=== PATIENT | male | born 1945 | race Caucasian/White ===

== ENCOUNTER 2019-05-23 10:44 | Inpatient (IN) ==
--- NOTE | 2019-05-23 12:43 | Diag Imaging Result Doc PS360 ---
EXAM: ABDOMEN FLAT/UPRIGHT 05/23/2019 HISTORY: ascites TECHNIQUE: Flat and upright abdomen COMMENT: There is some stool throughout the colon. There is no evidence of organomegaly or mass. The stomach and small bowel are not distended. IMPRESSION: Constipation. Electronically signed by Danny Rojas 05/23/2019 12:41 PM
--- NOTE | 2019-05-23 12:44 | Diag Imaging Result Doc PS360 ---
EXAM: CHEST-2 VIEWS 05/23/2019 HISTORY: r/o pna TECHNIQUE: PA and lateral chest COMMENT: The right upper lobe is overexposed. There is some questionable platelike atelectasis in the lingula. Otherwise lungs appear to be clear and the heart and pulmonary vascularity are within normal limits. IMPRESSION: Questionable lingular atelectasis. Electronically signed by Danny Rojas 05/23/2019 12:42 PM
[2019-05-23] MEDS ORDERED: DULCOLAX PR ONE (13:09)
--- NOTE | 2019-05-23 13:48 | HISTORY AND PHYSICAL ---
PRIMARY CARE PROVIDER: Dr. Guicho Ross with the IN in [place]. CHIEF COMPLAINT: Shortness of breath, enlarging abdomen, and decreased urine output. HISTORY OF PRESENT ILLNESS: Mr. Guicho Parkinson is a 73-year-old male, with a medical history of diabetes mellitus type 2 on insulin, history of right lower extremity gonorrhea infection from diabetic wound, now a right rulmj-pnb-zohd amputation, and most recently diagnosed with cirrhosis of the liver around 1-1/2 months ago, which has now turned into significant ascites. It is currently causing him to have a decrease in his urine output and he already has CKD. He states last month, which according to our records, on 04/11/2019, he had come in with complaints of nerves, some fatigue, and apparently was incidentally found with the fluid on his abdomen, so the ER made an appointment with Dr. Wilson who he saw today. He has had increasing shortness of breath. Denies any fever. No productive cough. He has had decreased urine output for 3 weeks that has progressively worsened on a daily basis. He has had no bowel movement in 3 days, and complains of constipation for 2 weeks along with lower bilateral quadrant abdominal pain and discomfort. He denies any nausea or vomiting. He does state that someone had told him to drink half a gallon of water per day, which he has done. We have admitted him as a direct admit for Dr. Wilson who plans on doing a paracentesis. PAST MEDICAL HISTORY: 1. Diabetes mellitus type 2, on insulin. 2. History of right lower extremity gonorrhea infection secondary to diabetic foot ulcer, now status post right nxsfe-ezl-kvcr amputation. 3. Cirrhosis of the liver, with questionable history of hepatitis B. 4. GERD. 5. CKD, stage 3. 6. Hypertension. 7. Hyperlipidemia. SURGICAL HISTORY: 1. Right sxhdl-yrt-hcdx amputation. 2. Left great toe amputation. 3. History of stress test several years back. SOCIAL HISTORY: Denies tobacco, alcohol or illicit drug use. He states he has never smoked or drank, however, he is a [employer] and a [employer] and was exposed to Agent [place] in the past. He is . He has 2 adult daughters. 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 He has an artificial limb on the right lwqxa-htq-bjno amputation and uses a cane to assist with his ambulation. FAMILY HISTORY: Mother of a heart attack at 82. Father of TB. ALLERGIES: No known drug allergies. HOME MEDICATIONS: Home medications have not been reconciled yet. REVIEW OF SYSTEMS: Fourteen point review of systems are complete and all were negative except for those mentioned above in the HPI. PHYSICAL EXAMINATION: VITAL SIGNS: Temperature 98.3 degrees, heart rate 83, respiratory rate 18, blood pressure 191/61, O2 saturation 95% on room air. GENERAL: Mr. Guicho Parkinson is a 73-year-old male. He is in no acute distress, is able to answer questions appropriately. HEENT: Atraumatic, normocephalic. Pupils equal, round, and reactive to light. Extraocular movements intact. Mucous membranes are moist. NECK: Trachea midline. CARDIOVASCULAR: S1, S2. Regular rate and rhythm. No rubs, gallops, or murmurs. There is no lower extremity edema. He has +1 dorsalis pedal pulse on the left leg, +2 radial pulses. Negative for JVD or carotid bruits. PULMONARY: Clear to auscultation bilateral breath sounds. No accessory muscle use or work of breathing noted. GI: Large, round, tight, firm, decreased bowel sounds. EXTREMITIES: Moves all extremities equally except the right lower extremity is artificial. NEUROLOGIC: A and O x3. Follows commands. Sensory is intact. SKIN: Warm, dry, intact. LABORATORY DATA: None available yet. IMAGING: Chest x-ray, questionable lingular atelectasis. Abdominal x-ray shows constipation. He had an abdominal ultrasound on April 11, 2019 which showed cirrhosis and ascites. ASSESSMENT AND PLAN: 1. Cirrhosis of the liver, with ascites. Dr. Wilson is seeing this patient and plans for a paracentesis. Currently obtaining all labs. I will evaluate liver function and retest for the antibodies of the hepatitis. Started on some lactulose. Check an ammonia level. He does not have any jaundice that is visible. 2. Diabetes mellitus, type 2. We will do pattern blood glucoses and sliding scale insulin. 3. CKD, stage 3, most likely with acute kidney injury as he has had progressive decreased urine output so we will do urine studies and a renal ultrasound. 4. Hypertension. Currently, he is actually hypotensive but it is most likely from increased intra-abdominal pressure from the ascites, so we will hold any antihypertensives, plus he most likely has acute kidney injury as well. 5. Hyperlipidemia. It looks like he was on a statin at one time, but we will hold that. 6. GERD. Once his home medications are verified we will resume whatever it is he takes for that. 7. Deep venous thrombosis prophylaxis. We will use an SCD for the left lower extremity. 8. Complaints of constipation. No bowel movements in 3 days, worsening constipation for 2 weeks, so, he will get a bisacodyl suppository and we will do lactulose 30 mL twice daily. Dictated by ALDO Gage for Fausto Nava MD cc: ALDO Gage MD MTDD
[2019-05-23 15:16] LABS: INR 1.34; PROTIME 16.8 Seconds (11.0-16.0)
[2019-05-23 15:17] LABS: PTT 34.5 Seconds (22.3-41.8)
[2019-05-23 15:19] LABS: BASO# 0.04 X1000 (0.0-0.2); BASO% 0.7 % (0.0-0.8); EOS# 0.14 X1000 (0.0-0.7); EOS% 2.5 % (0.0-10.0); HEMOGLOBIN 11.4 g/dL (14.0-18.0); LYMPH# 1.97 X1000 (1.2-3.4); LYMPH% 34.9 % (20.5-51.1); MCH 34.2 PG (27-31); MCHC 32.6 g/dL (33-37); MCV 105.1 FL (81-99); MONO# 0.79 X1000 (0.11-0.59); MPV 10.6 FL (7.4-10.4); NEUT# 2.71 X1000 (1.4-6.5); NEUT% 47.9 % (42.2-75.2); PLT 103 X1000 (130-400); RBC 3.33 XMIL (4.7-6.1); RDW 14.2 % (11.5-14.5); WBC 5.65 X1000 (4.8-10.8)
[2019-05-23 15:26] LABS: ALB/GLOB RATIO 0.5; ALBUMIN 2.6 g/dL (3.5-5.0); CALCIUM 8.2 mg/dL (8.8-10.2); CREATININE 1.7 mg/dL (0.7-1.2); POTASSIUM 4.6 mmol/L (3.5-5.1); TOTAL BILIRUBIN 1.11 mg/dL (0.20-1.00); TOTAL PROTEIN 8.3 g/dL (6.3-8.3)
[2019-05-23 15:27] LABS: MAGNESIUM 1.8 mg/dL (1.5-2.7)
--- NOTE | 2019-05-23 16:42 | HISTORY AND PHYSICAL ---
ADDENDUM: The patient was seen and examined by me [id number]. All the laboratory, vital signs, and images were reviewed. This patient's abdomen is distended due to ascites secondary to cirrhosis. Abdomen x-ray showed constipation. He had just a small bowel movement today. Chest x- ray with no infiltrates, with some atelectasis. He is not having any respiratory distress. Vital signs are stable, probably slightly hypotensive or on the low side. Laboratory showed a hemoglobin of 11.4, a platelet count of 103,000. PT 16.8 but INR is 1.3. BUN is normal but creatinine is 1.7. On 04/11/2019, his creatinine was 1.8. As per the patient, he has never been told to have a chronic kidney disease. We asked for a paracentesis, that probably is going to be done tomorrow. We have placed this patient back on his home medications. He has been placed on a renal diet as well. We need to make sure that he receives albumin after the paracentesis if we remove more than 5 L of ascitic fluid. He seems to be stable at this moment. We will wait for the paracentesis. Gastroenterology department has been consulted but actually they sent this patient over to hospitalize this patient due to his ascites. I agree with the rest of the nurse practitioner's assessment and plan. cc: Fausto Nava MD
[2019-05-23] MEDS: LACTULOSE PO SCH ×2 (18:40→20:49)
[2019-05-23 20:30] LABS: URINE SOURCE CATH
[2019-05-23 20:37] LABS: BILIRUBIN URINE NEGATIVE (NEGATIVE); BLOOD URINE LARGE (NEGATIVE); COLOR YELLOW; GLUCOSE URINE NEGATIVE (NEGATIVE); KETONE URINE NEGATIVE (NEGATIVE); LEUKOCYTES URINE NEGATIVE (NEGATIVE); NITRITE URINE NEGATIVE (NEGATIVE); PH URINE 5.5; PROTEIN URINE 30 mg/dL (NEGATIVE); SP GRAVITY URINE 1.022; TURBIDITY URINE HAZY (CLEAR); UROBILINOGEN URINE 2 mg/dL (NORMAL)
[2019-05-23 20:38] LABS: UR EPITHELIAL CELLS <10 /HPF (<10); URINE BACTERIA NEGATIVE /HPF; URINE RBC <10 /HPF (<10); URINE WBC <10 /HPF (<10)
[2019-05-23] MEDS: HUMULIN 70/30 SUBQ SCH (20:50)
[2019-05-23] MEDS: NEURONTIN PO SCH (20:50)
[2019-05-23 20:51] LABS: UR CREAT RANDOM 220.7 mg/dL (14-26)
[2019-05-24] MEDS: PRILOSEC PO SCH (06:10)
--- NOTE | 2019-05-24 06:59 | EKG Report ---
Test Performed on : 05/24/2019 06:37:48 AM Test Reason : chest pain Blood Pressure : / mmHG Vent. Rate : 090 BPM Atrial Rate : 094 BPM P-R Int : 000 ms QRS Dur : 078 ms QT Int : 362 ms P-R-T Axes : 000 070 -39 degrees QTc Int : 442 ms Atrial fibrillation. Low voltage QRS Septal infarct , age undetermined T wave abnormality, consider inferior ischemia Abnormal ECG No previous ECGs available Confirmed by Wesley Luong MD ([id number]) on 05/25/2019 5:31:17 PM
[2019-05-24 07:08] LABS: BASO# 0.02 X1000 (0.0-0.2); BASO% 0.4 % (0.0-0.8); EOS% 1.9 % (0.0-10.0); HEMATOCRIT 33.3 % (42.0-52.0); HEMOGLOBIN 10.8 g/dL (14.0-18.0); LYMPH# 1.69 X1000 (1.2-3.4); LYMPH% 32.3 % (20.5-51.1); MCHC 32.4 g/dL (33-37); MCV 104.7 FL (81-99); MONO# 0.74 X1000 (0.11-0.59); MONO% 14.1 % (1.7-9.3); NEUT# 2.68 X1000 (1.4-6.5); NEUT% 51.3 % (42.2-75.2); PLT 105 X1000 (130-400); RBC 3.18 XMIL (4.7-6.1); RDW 14.1 % (11.5-14.5); WBC 5.23 X1000 (4.8-10.8)
[2019-05-24 07:37] LABS: ALB/GLOB RATIO 0.4; ALBUMIN 2.3 g/dL (3.5-5.0); CALCIUM 8.3 mg/dL (8.8-10.2); CREATININE 1.8 mg/dL (0.7-1.2); MAGNESIUM 1.9 mg/dL (1.5-2.7); POTASSIUM 5.2 mmol/L (3.5-5.1); TOTAL BILIRUBIN 1.2 mg/dL (0.20-1.00)
--- NOTE | 2019-05-24 09:35 | Diag Imaging Result Doc PS360 ---
EXAM: US RENAL 2 ([facility]) COMPLETE INDICATION: jhon; ascites TECHNIQUE: COMPARISON: None. FINDINGS: The kidneys are grossly normal in echotexture with no discrete renal mass or hydronephrosis. The right kidney measures 11.3 cm and the left kidney measures 12 cm in the greatest longitudinal axes. There is a Quick catheter in the urinary bladder and the bladder is nondistended. IMPRESSION: Unremarkable renal ultrasound. Electronically signed by Guicho Ramirez 05/24/2019 9:33 AM
[2019-05-24] MEDS ORDERED: ALBUMIN 25% IV ONE (09:59)
[2019-05-24] MEDS: ASPIRIN EC PO SCH (10:10)
[2019-05-24] MEDS: NEURONTIN PO SCH ×2 (10:11→21:28)
--- NOTE | 2019-05-24 10:17 | Diag Imaging Result Doc PS360 ---
EXAM: US ABD PARACENTESIS W S/I HISTORY: symptomatic ascites, HBV cirrhosis TECHNIQUE: Ultrasound-guided paracentesis COMPARISON: None. FINDINGS: Prior to the procedure I discussed the risk and benefits with the patient. Primary risks include bleeding, infection, bowel injury, and liver injury. Questions were answered. Consent was given. The permit was signed. Ultrasound was used to localize the largest fluid collection in the right abdomen. This area was cleaned and draped in the normal fashion. Lidocaine was used as a local anesthetic. Needle and catheter were advanced into the fluid collection on the first attempt without difficulty. The needle was withdrawn. The catheter was hooked to suction. Approximately 2.3 L of fluid were withdrawn without difficulty. The catheter was then withdrawn. No immediate postprocedural complications. IMPRESSION: Successful ultrasound-guided paracentesis. Electronically signed by Vikram Brito 05/24/2019 10:14 AM
[2019-05-24] MEDS ORDERED: INSULIN PEN NEEDLES ONE (10:49)
[2019-05-24] MEDS: HUMULIN 70/30 SUBQ SCH ×2 (10:51→21:27)
--- NOTE | 2019-05-24 11:07 | GASTROENTEROLOGY CONSULTATION ---
DATE: 05/24/2019 REASON FOR CONSULTATION: Cirrhosis. HISTORY OF PRESENT ILLNESS: Mr. Parkinson is a 73-year-old male with a history of insulin-dependent diabetes type 2, GERD, hepatitis B, cirrhosis, and peripheral neuropathy. The patient came into the hospital yesterday after seeing Dr. Wilson. He was complaining of fatigue, nervousness, shortness of breath, distended abdomen, dyspnea on exertion. The patient denied any nausea, vomiting, but did complain that his urine output has decreased and his urine is dark. He patient mentioned that for the last 6 weeks onwards he is having shakiness in his hands, confusion, fatigue. The patient had been to the ER on 04/11/2019, and at that time his liver functions were elevated and his ultrasound showed that he had some ascites. He is currently reporting that his shakiness has been a little better. He is reporting some constipation which is going on for the past few days onwards. His last bowel movement was 2 days back. He has denied any nausea, vomiting, or any flu-like symptoms. The patient is having a good appetite. He has gained 6-8 pounds in the last 2 to 3 months. The patient did mention that he was diagnosed with hepatitis B, and he is following Dr. Lindo at [facility], and he also sees a skiver uppers or linings at [facility], but has not had any treatment so far. He did have an EGD and a colonoscopy 3 years back. He does have a right foot amputation in 2016 and a left great toe amputed in 2005. The patient does wear a prosthetic leg. The patient currently denies any abdominal pain, but has the feeling of discomfort due to the distention and causes him to have SOB and LORENZO. The patient had an ultrasound-guided paracentesis done today, and approximately 2.3 liters of fluid was taken off, awaiting the results of the fluid analysis. The patient's abdominal x-ray on admission showed constipation. His chest x-ray on admission showed questionable lingular atelectasis. PAST MEDICAL HISTORY: Insulin dependent diabetes type 2, infection in the right lower extremity resulting in a dsoeq-ixj-kdba amputation, cirrhosis of the liver with history of hepatitis B, GERD, chronic kidney disease stage 3, hypertension, hyperlipidemia, peripheral neuropathy, and obesity. PAST SURGICAL HISTORY: Right buftv-yhz-ivch amputation, left great toe amputation. ALLERGIES: No known drug allergies. SOCIAL HISTORY: The patient denies any alcohol, tobacco, or illicit drug use. He is a , and he thinks that he might be exposed to Agent [place] in the past. He is , has 2 kids. 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 FAMILY HISTORY: Mother had heart attack. Father of TB. ALLERGIES: No known drug allergies. HOME MEDICATIONS: Aspirin 81 mg, Neurontin 400 mg twice a day, insulin Novolin 70/30 at 20 units subcutaneously in the a.m., lisinopril/hydrochlorothiazide 20/12.5 mg 10 mg tablet daily, omeprazole 40 mg, and Novolin 70/30 at 30 units subcutaneously at bedtime. REVIEW OF SYSTEMS: As per HPI. Otherwise, 12-point review of systems is negative. PHYSICAL EXAMINATION: Vital Signs: Temperature 98.1 degrees, pulse 93, respirations 18, blood pressure 141/59, oxygen saturation 99% on room air. The patient's weight is 227 pounds. General: He is alert, oriented x3. Answering questions appropriately and in no acute distress. HEENT: Pale conjunctivae. Mild icterus. PERRL. Neck: Supple. Lungs: Clear to auscultation. Cardiovascular: Patient is tachycardic. Abdomen: Firm, distended, nontender. Has a bandage on the right side where the paracentesis was done. Hypoactive bowel sounds heard in all 4 quadrants. Extremities: No clubbing, no cyanosis. No edema in the left lower extremities with the left great toe amputated and the right ksveb-sca-gkte amputation. Neurological: Alert and oriented x3. Nonfocal. Cranial nerves 2 through 12 grossly intact. LABORATORY DATA: WBCs of 5.23, RBCs 3.18, hemoglobin is 10.8, hematocrit is 33.3, platelet count is 105,000. PT 16.8, INR 1.34. Sodium 137, potassium 5.2, chloride 104, carbon dioxide 23, anion gap is 10, BUN is 25, creatinine is 1.8, glucose 180, calcium 8.3, magnesium 1.9, total bilirubin 1.2, AST 55, ALT 33, alkaline phosphatase 78, albumin is 2.3. Urinalysis yesterday showed protein of 30, large amount of blood. IMAGING: Ultrasound-guided paracentesis was done today, which showed he had 2.3 liters of fluid that was withdrawn. Renal ultrasound is unremarkable. Chest x- ray shows questionable lingular atelectasis. Abdominal x-ray shows constipation. IMPRESSION AND PLAN: 1. Decompensated hepatitis B cirrhosis. 2. Ascites. 3. Constipation. 4. Hyperkalemia. 5. Hypoalbuminemia. 6. Acute kidney injury. 7. Insulin dependent diabetes. 8. Thrombocytopenia PLAN: Mr. Parkinson is a 73-year-old male with a history of hepatitis B. GI has been following him for his hepatitis B cirrhosis. Abdominal ultrasound-guided paracentesis was done today, and they removed approximately 2.3 liters of fluids. We have also ordered a hepatitis B DNA quantitative by PCR. We will give patient albumin 75 grams. The patient is currently receiving PPIs daily. For his diabetes, he is on Humulin 70/30 at 30 units at bedtime and 20 units in the a.m. The patient did have 1 bowel movement yesterday. Awaiting the results of his hepatitis profile and his fluid analysis. We will continue to monitor the patient and follow the plan of care per PCP. This plan was discussed with Dr. Wilson. Thank you for your consult. Please call us for any further questions or concerns. Dictated by ALDO Yeager for Yuriy Wilson MD ELLIS
[2019-05-24 11:14] LABS: BODY FLUID SOURCE ASCETIC FLUID; WBC BF 647 /cumm
[2019-05-24 11:15] LABS: MONOS 96 %; POLYS 4 %
[2019-05-24 11:44] LABS: TOTAL PROT BODY FLUID 1.4 g/dL
[2019-05-24 11:50] LABS: ALBUMIN BODY FLUID 0.6 g/dL
[2019-05-24 13:10] LABS: HEPATITIS PROFILE ACUTE SEE COMMENTS
--- NOTE | 2019-05-24 13:53 | PROGRESS NOTE ---
DATE: 05/24/2019 SUBJECTIVE: The patient reports feeling fine after he had a paracentesis in which 2.3 L of ascitic fluid has been removed. Denies any other complaints. OBJECTIVE: Vital Signs: Temperature 97.8 degrees, heart rate 96, respiratory rate 19, blood pressure 123/70, O2 saturation 100% on room air. General examination: This is a chronically ill-looking, 77-year-old, male, lying in bed, no acute distress. Cardiovascular exam: S1, S2 heard. No murmurs, gallops, or rubs. Regular rate and rhythm. Respiratory exam: Clear bilaterally to auscultation. No work of breathing or using accessory muscles. Abdomen: Distended. Physical exam compatible with ascites. No signs of peritoneal irritation. Extremities: No clubbing or cyanosis. Mild edema in both lower extremities. Neurological exam: Patient alert and oriented x3. Moves 4 extremities. LABORATORY DATA: White cell count 5.23, hemoglobin 10.8, hematocrit 33.3, platelets 105,000, with potassium 5.2, creatinine 1.8. Hepatitis panel returned positive for hepatitis B, acute. ASSESSMENT AND PLAN: 1. Cirrhosis of the liver with ascites. Gastroenterology is following this patient, has had paracentesis, which removed basically 2.3 L of ascitic fluid. Hepatitis panel has been recollected and apparently shows an acute hepatitis B. We will see what GI has to say. 2. Diabetes mellitus type 2. Will continue with sliding scale insulin and Accu-Chek before meals and also at bedtime. 3. Chronic kidney disease stage 3. Will continue with monitoring BMP. 4. Hypertension. Blood pressure has been definitely much better in the range of 100 to 120. Will continue with the same management. 5. Hyperlipidemia. Will continue with home medications. 6. Gastroesophageal reflux disease. Aware. Will continue with home medications. 7. Constipation. will continue with lactulose twice daily as needed. 8. Disposition. Will continue to monitor this patient closely. Will monitor also liver function tests as well. cc: Dev Salas MD
[2019-05-25] MEDS: PRILOSEC PO SCH (06:08)
[2019-05-25 06:51] LABS: ALB/GLOB RATIO 0.6; ALBUMIN 2.8 g/dL (3.5-5.0); CALCIUM 8.3 mg/dL (8.8-10.2); CREATININE 1.5 mg/dL (0.7-1.2); MAGNESIUM 1.9 mg/dL (1.5-2.7); POTASSIUM 4.7 mmol/L (3.5-5.1); TOTAL BILIRUBIN 1.54 mg/dL (0.20-1.00); TOTAL PROTEIN 7.7 g/dL (6.3-8.3)
[2019-05-25 06:59] LABS: BASO# 0.02 X1000 (0.0-0.2); BASO% 0.6 % (0.0-0.8); EOS# 0.12 X1000 (0.0-0.7); EOS% 3.3 % (0.0-10.0); HEMATOCRIT 31.2 % (42.0-52.0); HEMOGLOBIN 10.3 g/dL (14.0-18.0); LYMPH# 1.46 X1000 (1.2-3.4); LYMPH% 40.4 % (20.5-51.1); MCH 34.6 PG (27-31); MCV 104.7 FL (81-99); MONO# 0.54 X1000 (0.11-0.59); NEUT# 1.47 X1000 (1.4-6.5); NEUT% 40.7 % (42.2-75.2); PLT 94 X1000 (130-400); RBC 2.98 XMIL (4.7-6.1); RDW 13.8 % (11.5-14.5); WBC 3.61 X1000 (4.8-10.8)
[2019-05-25 07:31] VITALS: BP 129/71
[2019-05-25] MEDS: ASPIRIN EC PO SCH (08:44)
[2019-05-25] MEDS: HUMULIN 70/30 SUBQ SCH (08:45)
[2019-05-25] MEDS: NEURONTIN PO SCH (08:54)
--- NOTE | 2019-05-25 17:43 | DISCHARGE SUMMARY ---
ADMISSION DATE: 05/23/2019 DISCHARGE DATE: 05/25/2019 DISCHARGE DIAGNOSES: 1. Cirrhosis of the liver with ascites. 2. Known fatty liver disease. 3. Diabetes mellitus type 2. 4. Hepatitis B acute on chronic. 5. Chronic kidney disease stage 3. 6. Hypertension. 7. Hyperlipidemia. 8. Gastroesophageal reflux disease. CONSULTATIONS: Dr. Wilson from GI. PROCEDURES: 1. Abdomen x-ray showed constipation. 2. Chest x-ray showed a questionable lingular atelectasis. 3. Paracenteses ultrasound was performed on removed 2.3 L of fluids. HOSPITAL COURSE: This is a 73-year-old male with past medical history diabetes, right lower extremity no reinfection from diabetic wound now with a right qdqra-mrl-vjdf amputation who was sent to the emergency department because of shortness of breath and increase in non productive cough. He has decreased urinary output. Patient was mentioned for direct admit per Dr. Wilson who planned to do a paracenteses. After procedure was done patient was doing much better. He does not look encephalopathic. We checked a hepatitis panel that was positive for hepatitis B actually the surface antibody on the core. Patient denies any new sexual contacts or using illicit drugs or dirty needles. Viral low has been ordered since we found out that this patient has a positive hepatitis B. Patient is clinically doing okay. As we mentioned before he does not look to be encephalopathic. He is going to be discharged in stable condition. He is going to see Dr. Wilson in the office as already scheduled next week. DISCHARGE PHYSICAL EXAMINATION: Temperature 98 degrees, heart rate 85, respiratory rate 14 blood pressure 129/71, O2 saturation 97% on room air. General: This is a chronically ill-looking, 73- year-old male, lying in bed, in no acute distress. Cardiovascular: S1, S2 heard. No murmurs, gallops, or rubs. Regular rate and rhythm. Respiratory: Clear bilaterally to auscultation. No work of breathing or using accessory muscles. Abdomen: Soft, distended with residual cystitis, nontender to palpation. No signs of peritoneal irritation. Extremities: Right below-knee amputation noted. Neurological: The patient alert oriented x3. Moves 4 extremities. DISCHARGE DISPOSITION: Home to self-care. FOLLOWUP: Dr. Wilson as already scheduled. DISCHARGE MEDICATIONS: Because of the elevated I will white cell count in the ascitic fluid of 647 patient is going to receive cefdinir 300 mg 1 tablet p.o. twice daily for a week. TIME DISCHARGING PATIENT: 33 minutes. cc: Dev Salas MD MTDD
== END 2019-05-25 14:41 | disposition home or self-care (01) | DRG 432 ==
LOC: DIRADM 10:44 → SUATTDRO 10:44 → EDIPHOLD 11:41 → 3N 16:32
PROVIDERS: ATTEND Internal Medicine